=== PATIENT | male | born 1945 | race Caucasian/White ===

== ENCOUNTER 2020-12-07 11:28 | Emergency (ER) | payer MEDICARE ==
[~2020-12-07] VITALS: Ht 175.3 cm; Wt 68.0 kg
[~2020-12-07 11:28] MED LIST: ALBUTEROL0.63 MG/3 NEB; ALDACTONE50 MG PO; ASPIR 8181 MG PO; BC POWDER PACK1 EAC1 PO; CALCIUM500 MG PO; FLONASE; FOLIC ACID1 MG PO; FOSAMAX70 MG PO; LISINOPRIL2.5 MG PO; METRONIDAZOLE250 MG PO; MOBIC15 MG PO; MULTI-VITAMIN1 EACH PO; NITROGLYCERIN0.4 MG SL; NORCO 5-325 TA1 EACH PO; PANTOPRAZOLE SO40 MG PO; PRILOSEC OTC20 MG PO; SPIRIVA18 MCG INH; TYLENOL EXTRA500 MG PO; ULTRAM 50MG50 MG PO; VITAMIN D31000 UNI1 PO; [UNRECOGNIZED DRUG - OTHER] PO
[2020-12-07] MEDS ORDERED: TETANUS/DIPHTHERIA TOX ADULT 0.5 ML SYR IM ONE (12:00)
[2020-12-07] MEDS ORDERED: HYDROCODONE/APAP 5MG-325MG TAB PO ONE (12:00)
[2020-12-07] MEDS ORDERED: CEFAZOLIN SOD 500 MG VIAL IM STA (14:04)
[2020-12-07] MEDS ORDERED: LIDOCAINE HCL 1% LOCAL INJ 20 ML VIAL INJ ONE (14:15)
[2020-12-07] MEDS ORDERED: CEFAZOLIN SOD 1 GM VIAL ONE (14:17)
[2020-12-07] MEDS ORDERED: MUPIROCIN 2% OINT 22 GM TUBE ONE (14:18)
[2020-12-07] MEDS ORDERED: ULTRAM50 MG PO (14:34)
== END 2020-12-07 15:09 | disposition home or self-care (01) ==
LOC: ER 12:06
DX: S62.306A Unspecified fracture of fifth metacarpal bone, right hand, initial encounter for closed fracture (principal); S61.411A Laceration without foreign body of right hand, initial encounter; S00.83XA Contusion of other part of head, initial encounter; M25.511 Pain in right shoulder; W01.0XXA Fall on same level from slipping, tripping and stumbling without subsequent striking against object, initial encounter; Y93.01 Activity, walking, marching and hiking; Y92.008 Other place in unspecified non-institutional (private) residence as the place of occurrence of the external cause; Z85.118 Personal history of other malignant neoplasm of bronchus and lung
CPT/HCPCS: 12001; 70450; 70486; 72125; 73030; 73130; 90471; 90714; 99284; J0690; J2001